=== PATIENT | female | born 1945 | race Caucasian/White ===

== ENCOUNTER 2017-06-10 14:06 | Observation (INO) ==
[2017-06-10 14:37] LABS: Basophils # 0.1 K/mm3 (0-0.2); Basophils % 0.7 % (0.1-2.0); Eosinophils # 0.2 K/mm3 (0.0-0.4); Eosinophils % 2.6 % (0.1-12.0); Hematocrit 49.1 % (37.0-47.0); Hemoglobin 15.7 g/dL (12.2-16.2); Lymphocytes # 3.3 K/mm3 (0.7-4.5); Lymphocytes % 35.5 K/mm3 (10-50); Mean Corpuscular Hemoglobin 30.1 pg (27.0-31.2); Mean Platelet Volume 9.2 fl (7.4-10.4); Monocytes # 0.5 K/mm3 (0.1-1.0); Monocytes % 5.7 % (1.7-9.3); Neutrophils # 5.2 K/mm3 (1.8-7.8); Neutrophils % 55.5 % (37.0-80.0); Platelet Count 246 K/mm3 (142-424); Red Blood Count 5.22 M/mm3 (4.20-5.40); Red Cell Distribution Width 14.3 % (11.5-17.5); White Blood Count 9.3 K/mm3 (4.8-10.8)
[2017-06-10 14:46] LABS: Chloride 103 mmol/L (98-107); Creatine Kinase 150 U/L (26-192); Potassium 3.8 mmoL/L (3.5-5.1); Sodium 141 mmol/L (136-145)
[2017-06-10 14:47] LABS: Aspartate Amino Transferase 24 U/L (15-37); Bilirubin,Total 0.3 mg/dL (0.2-1.0); Blood Urea Nitrogen 7 mg/dL (7-18); Calcium 9.1 mg/dL (8.5-10.1); Carbon Dioxide 29 mmol/L (21.0-32.0); Glucose 122 mg/dL (74-106)
[2017-06-10 14:48] LABS: Alanine Aminotransferase 23 U/L (12-78); Albumin Level 3.8 gm/dL (3.4-5.0); Alkaline Phosphatase 92 U/L (46-116); Total Protein,Serum 7.8 gm/dL (6.4-8.2)
--- NOTE | 2017-06-10 14:50 | Emergency Department Note ---
ED Disposition Clinical Impression: Tobacco use, COPD (chronic obstructive pulmonary disease), Chest pain, Hypertension Disposition: Still a Patient Condition on Discharge: Fair Referrals: Lewis Sloan MD [Primary Care Provider] - - Critical Care Critical Care Time: No Attestation: On , the high probability of a clinically significant, sudden or life threatening deterioration of the following system(s) required my full and direct attention, intervention and personal management. The time I documented below is in addition to time spent performing reported procedures but includes the following listed in this critical care notation. Medical Decision Making - Jacques Inquiry Pt receiving controlled substance: No Jacques was queried for this patient: No Vital Signs: 06/10/17 14:08 06/10/17 14:22 06/10/17 15:01 Temperature 98.1 F Temperature Source Oral Pulse Rate 85 Pulse Rate [Right Brachial] 87 88 Respiratory Rate 18 18 Blood Pressure [Right Arm] 185/108 157/98 Blood Pressure Mean [Right Arm] 133 117 Blood Pressure Source [Right Arm] Automatic Cuff Automatic Cuff Blood Pressure Position [Right Arm] Sitting Sitting 02 Sat by Pulse Oximetry 95 94 L Oxygen Delivery Method Room Air Room Air 06/10/17 16:37 Temperature 97.8 F Temperature Source Oral Pulse Rate Pulse Rate [Right Brachial] 85 Respiratory Rate 18 Blood Pressure [Right Arm] 152/88 Blood Pressure Mean [Right Arm] 109 Blood Pressure Source [Right Arm] Automatic Cuff Blood Pressure Position [Right Arm] Supine 02 Sat by Pulse Oximetry 91 L Oxygen Delivery Method Room Air - Lab Data Lab Results 06/10/17 14:25: WBC 9.3, RBC 5.22, Hgb 15.7, Hct 49.1 H, MCV 94.0, MCH 30.1, MCHC 32.0, RDW 14.3, Plt Count 246, MPV 9.2, Neut % (Auto) 55.5, Lymph % (Auto) 35.5, [place] % (Auto) 5.7, Eos % (Auto) 2.6, Baso % (Auto) 0.7, Neut # (Auto) 5.2 , Lymph # (Auto) 3.3, [place] # (Auto) 0.5, Eos # (Auto) 0.2, Baso # (Auto) 0.1 06/10/17 14:25: Sodium 141, Potassium 3.8, Chloride 103, Carbon Dioxide 29, Anion Gap 12.8, BUN 7, Creatinine 0.65, Estimated Creat Clear 52, Estimated GFR 90, Est GFR ( Amer) 109, Glucose 122 H, Calcium 9.1, Total Bilirubin 0.3 , AST 24, ALT 23, Alkaline Phosphatase 92, Total Creatine Kinase 150, CK-MB (CK- 2) 1.9, CK-MB (CK-2) Rel Index 1.3, Troponin I < 0.02, Total Protein 7.8, Albumin 3.8, Globulin 4.0 H, Albumin/Globulin Ratio 1.0 L 06/10/17 14:25: D-Dimer 980 H* 06/10/17 14:25: B-Natriuretic Peptide 6 06/10/17 15:01: Specimen Source L. radial, O2 % Room air, ABG pH 7.43, ABG pCO2 40.9, ABG pO2 64.1 L, ABG HCO3 26.3 H, ABG Total CO2 27.5 H, ABG O2 Saturation 94, ABG Base Excess 1.9, Kimo Test Acceptable 06/10/17 15:50: Lactic Acid 0.9 Result diagrams: 06/10/17 14:25 06/10/17 14:25 Orders (Tests/Meds): ED MEDICATIONS Generic Name Dose Route Start Last Admin Trade Name Freq PRN Reason Stop Dose Admin Ceftriaxone Sodium 1 gm/ 50 mls @ 100 mls/hr 06/10/17 15:30 06/10/17 15:47 Sodium Chloride IV 06/24/17 15:29 100 mls/hr Q24H ROSHAN Administration Protocol Nitroglycerin 0.5 gm 06/10/17 15:30 06/10/17 15:38 Nitroglycerin 1 Inch Oint Udp TD 07/10/17 15:29 0.5 gm Q8H ROSHAN Administration Discontinued Medications Generic Name Dose Route Start Last Admin Trade Name Freq PRN Reason Stop Dose Admin Albuterol/Ipratropium 3 ml 06/10/17 14:46 06/10/17 15:01 Duoneb 3ml Neb IH 06/10/17 14:47 3 ml ONCE ONE Administration Methylprednisolone Sodium Succinate 125 mg 06/10/17 15:21 06/10/17 15:38 Solu-Medrol 125mg/2ml Vial IV 06/10/17 15:22 125 mg ONCE ONE Administration ORDERS Category Date Time Status CT Chest w/PE protocol [CT angio chest] Stat Cat Scan 06/10/17 15:38 Taken Blood Culture Stat Micro 06/10/17 15:30 Received - ECG Data Tracing #1 Normal sinus rhythm 88/min left atrial enlargement nonspecific ST and T-wave changes, acute finding ECG initial impression date: 06/10/17 ECG initial impression time: 14:49 Medical Decision Narrative: The patient received Solu-Medrol and IV antibiotics with improvement of her air entry but she continued to have chest pain. She nitroglycerin paste and aspirin were given her chest pain as decreased to 4/10 and the left arm pain disappeared but she continued to have chest pressure. Due to elevated diameter the patient underwent a CT of the chest was negative for PE but positive for COPD. The patient was noted to be symptomatic and I called Dr. Sloan who agreed to admit her continue Nitropaste's Lovenox and cardiology consultation. Chest Pain HPI - General Chief Complaint: Chest Pain Stated Complaint: CHEST PAIN Time Seen by Provider: 06/10/17 14:10 Mode of Arrival: Ambulatory Limitations: No Limitations Description of Symptoms (Recalled from ER Triage Doc. by RN): REPORTS CHEST PAIN THAT STARTED DURING JUDAISM THAT WAS A SQUEEZING LIKE SENSATION, REPORTS PAIN DOWN HER LEFT ARM WITH IT AND ASSOCIATED SHORTNESS OF BREATH. PT REPORTS SHE TOOK 325MG ASPIRIN AT HOME - History of Present Illness HPI narrative: 72 years old white female with hypertension and tobacco addiction. She has been experiencing chest tightness in the past few weeks that has worsened at 9: 00 this morning before she goes to [facility]ze. Patient was brought to the ED after druze complaining of chest tightness that is 5/10 associated with occasional palpitations and shortness of breath. She denies fever or chills productive sputum. Denies nausea or vomiting. complaint: chest pain Onset (ago): hour(s) Time: 09:00 Duration: constant Activity at onset: during rest Pain location: substernal Severity: moderate Severity scale (1-10): 5 Quality: tightness Pain radiation: LUE Relieving factors: nothing Exacerbating factors: exertion Associated symptoms: dyspnea Risk Factors for CAD: Hypertension, Smoking Treatments prior to or on arrival for Cardiac Chest Pain: aspirin - Related Data On Oral Contraceptives: No Home Medications Medication Instructions Recorded Confirmed Aspirin [Aspirin 325mg Tab] 325 mg PO DAILY 06/10/17 06/10/17 Celecoxib 200 mg PO DAILY 06/10/17 06/10/17 Gabapentin [Gabapentin 300mg Cap] 300 mg PO BID 06/10/17 06/10/17 Ipratropium/Albuterol Sulfate 3 ml IH QID PRN 06/10/17 06/10/17 [Duoneb 3mL neb] Rosuvastatin Calcium 40 mg PO DAILY 06/10/17 06/10/17 Tramadol HCl/Acetaminophen 1 tab PO Q4H PRN 06/10/17 06/10/17 [Ultracet 37.5/325mg tablet] Allergies Allergy/AdvReac Type Severity Reaction Status Date / Time No Known Allergies Allergy Verified 06/10/17 14:15 [facility] History I have reviewed the patient's past medical history: Yes Medical History: Denies:: Cancer, Diabetes Mellitus Type 1, Diabetes Mellitus Type 2, MRSA Amputation: No Fractures: No - Social History Smoking Status: Current every day smoker Tobacco Type: cigarettes Alcohol Intake: never - Psychiatric History Expresses thoughts of harming self/others: None Suicide Plan Description: No Plan ROS Obtained: Yes All systems reviewed & no additional complaints Physical Exam - General General appearance: alert, in no apparent distress - Head Head exam: atraumatic, normocephalic, normal inspection - Eye Eye exam: Present: normal appearance, PERRL, EOMI - ENT ENT exam: Present: normal exam, normal oropharynx, mucous membranes moist, TM's normal bilaterally, normal external ear exam - Neck Neck exam: Present: normal inspection, full ROM, trachea midline. Absent: meningismus, lymphadenopathy - Chest Chest inspection: Present: normal inspection, symmetric chest wall rise. Absent : tenderness - Respiratory Respiratory exam: Present: normal lung sounds bilaterally. Absent: respiratory distress - Cardiovascular Cardiovascular exam: Present: regular rate, normal rhythm. Absent: JVD - Abdominal Exam Abdominal exam: Present: soft, normal bowel sounds. Absent: distention, tenderness, guarding - Extremities Exam Extremities exam: Present: normal inspection, full ROM, normal capillary refill. Absent: calf tenderness - Back Exam Back exam: Present: normal inspection. Absent: tenderness - Neurological Exam Neurological exam: Present: alert, oriented X3, CN II-XII intact, normal gait, motor sensory deficit - Psychiatric Psychiatric exam: Present: normal affect, normal mood - Skin Skin exam: Present: warm, dry, intact, normal color - Lymphatic Lymphatic Findings: no adenopathy
[2017-06-10 15:06] LABS: Anion Gap 12.8 mEq/L (5-15)
[2017-06-10 15:17] LABS: ABG Base Excess 1.9 mmol/L (-2.4-2.3); ABG HCO3 26.3 mmhg (22.0-26.0); ABG Oxygen Saturation 94 % (90-100); ABG PCO2 40.9 mmhg (35.0-45.0); ABG PH 7.43 mmol/L (7.35-7.45); ABG PO2 64.1 mmhg (80-100); ABG TCO2 27.5 mmhg (23-27)
[2017-06-10 15:18] LABS: Allen's Test Acceptable; Oxygen ROOM AIR %
[2017-06-11 07:08] LABS: Basophils % 0.2 % (0.1-2.0); Eosinophils % 0.1 % (0.1-12.0); Hematocrit 43.5 % (37.0-47.0); Lymphocytes # 1.9 K/mm3 (0.7-4.5); Mean Corpuscular Hemoglobin 29.7 pg (27.0-31.2); Mean Corpuscular Volume 92.9 fl (81-99); Mean Platelet Volume 9.4 fl (7.4-10.4); Monocytes # 0.6 K/mm3 (0.1-1.0); Monocytes % 6.2 % (1.7-9.3); Neutrophils # 7.1 K/mm3 (1.8-7.8); Neutrophils % 73.5 % (37.0-80.0); Platelet Count 250 K/mm3 (142-424); Red Blood Count 4.68 M/mm3 (4.20-5.40); Red Cell Distribution Width 14.3 % (11.5-17.5); White Blood Count 9.7 K/mm3 (4.8-10.8)
--- NOTE | 2017-06-11 07:24 | History & Physical Report ---
*Admission Date: 06/10/17 *Chief complaint: Chest pain *History of present illness: 72-year-old female with known hyperlipidemia and a cigarette smoker presented to the emergency department with centralized chest tightness radiating into the left arm. Patient describes a pressure and aching sensation within the chest and arm that began around 9 AM yesterday and and recurred throughout the day. Episodes of status would last for hours. There were no aggravating or alleviating factors. Patient tells me she has had chest pain only in the past and arm pain only in the past but she has never had the 2 together and that is when she became concerned. She is undergone cardiac evaluation in the remote past through stress testing. She continues to smoke 2-4 cigarettes per day but at her heaviest use was smoking pack of cigarettes a day and began smoking at the age of 21. She does not have any history of hypertension nor diabetes. In the emergency department she was given nitroglycerin which temporarily relieved her chest pain but then it recurred. Patient was admitted for rule out of [place] with serial enzymes and nitroglycerin paste was applied. This morning the patient is denying any chest pain. During her episodes of chest tightness she had associated shortness of breath, mild diaphoresis, no nausea [facility] History Medical History: Reports:: Cancer, Hyperlipidemia Denies:: Diabetes Mellitus Type 1, Diabetes Mellitus Type 2, MRSA Other Medical History: Reports: Arthritis, Sinus Problems Other Surgeries: Yes: Cholecystectomy, Tubal Ligation Amputation: No Fractures: No - *Social History Educational Level: Completed GED/General Educational Development Smoking Status: Current every day smoker Tobacco Type: cigarettes # Packs/Day (cigarettes): 1 #Yrs smoked (if former smoker): 50 Alcohol Intake: never Occupational Status: retired Housing: house - Psychiatric History Expresses thoughts of harming self/others: None Suicide Plan Description: No Plan *Family Hx:: Bleeding Disorder, Heart Attack, Stroke Review of Systems - Review of Systems Review of systems:: pertinent systems reviewed and negative unless documented below Meds Home Medications Medication Instructions Recorded Confirmed Type Aspirin [Aspirin 325mg Tab] 325 mg PO DAILY 06/10/17 06/10/17 History Celecoxib 200 mg PO DAILY 06/10/17 06/10/17 History Gabapentin [Gabapentin 300mg Cap] 300 mg PO BID 06/10/17 06/10/17 History Ipratropium/Albuterol Sulfate 3 ml IH QID PRN 06/10/17 06/10/17 History [Duoneb 3mL neb] Rosuvastatin Calcium 40 mg PO DAILY 06/10/17 06/10/17 History Tramadol HCl/Acetaminophen 1 tab PO Q4H PRN 06/10/17 06/10/17 History [Ultracet 37.5/325mg tablet] Allergies Allergy/AdvReac Type Severity Reaction Status Date / Time Sulfa (Sulfonamide Allergy Unknown Verified 06/10/17 19:32 Antibiotics) [facility] Allergy Verified 06/10/17 23:27 Exam Vital signs and Labs for Last 24 Hours: Temp Pulse Resp BP Pulse Ox 98.4 F 82 20 113/62 96 06/11/17 07:11 06/11/17 07:11 06/11/17 07:11 06/11/17 07:11 06/11/17 07:11 Laboratory Results - last 24 hr 06/11/17 00:20: Troponin I < 0.02 06/11/17 06:10: WBC 9.7, RBC 4.68, Hct 43.5, MCV 92.9, MCH 29.7, MCHC 32.0, RDW 14.3, Plt Count 250, MPV 9.4, Neut % (Auto) 73.5, Lymph % (Auto) 20.0, [place] % ( Auto) 6.2, Eos % (Auto) 0.1, Baso % (Auto) 0.2, Neut # (Auto) 7.1, Lymph # (Auto ) 1.9, [place] # (Auto) 0.6, Eos # (Auto) 0.0, Baso # (Auto) 0.0 I & O for Last 24 hours: Intake & Output 06/08/17 06/09/17 06/10/17 06/11/17 11:59 11:59 11:59 11:59 Intake Total 720 / 720 Output Total 850 / 850 Balance -130 / -130 Weight 142 lb 7 oz Narrative: She is awake and alert this morning. HEENT exam is grossly normal. Neck is without lymphadenopathy. Lungs are clear to auscultation bilaterally. Heart has a regular rate and rhythm. Abdomen is soft and nontender. Extremities are without edema. H&P: Result - Labs Labs: Short CBC 06/11/17 Range/Units 06:10 WBC 9.7 (4.8-10.8) K/mm3 Hct 43.5 (37.0-47.0) % Plt Count 250 (142-424) K/mm3 Cardiac Enzymes 06/11/17 Range/Units 00:20 Troponin I < 0.02 (0.00-0.06) ng/ml Assessment and Plan (1) Unstable angina Current visit: Yes Status: Acute Category: Medical Code(s): I20.0 - Unstable angina (2) Chest pain Current visit: Yes Status: Acute Category: Medical Code(s): R07.9 - Chest pain, unspecified (3) Hyperlipidemia Current visit: Yes Status: Acute Category: Medical Code(s): E78.5 - Hyperlipidemia, unspecified (4) COPD (chronic obstructive pulmonary disease) Current visit: Yes Status: Acute Category: Medical Code(s): J44.9 - Chronic obstructive pulmonary disease, unspecified (5) Tobacco use Current visit: Yes Status: Acute Category: Social Hx Code(s): Z72.0 - Tobacco use - Assessment and plan all Dx Assessment and Plan for all problems:: . Patient is ruled out for [place] 2. Echocardiogram ordered this morning 3. Cardiology consultation this morning.
--- NOTE | 2017-06-11 07:25 | Pharmacy Consult Notes ---
[facility] Pharmacy VTE Monitoring - Patient Demographics Admission date: 06/10/17 Report Date: 06/11/17 Time: 07:25 Allergies/Adverse Reactions: Patient Allergies Sulfa (Sulfonamide Antibiotics) Allergy (Unknown, Verified 06/10/17 19:32) cetirizine [From Zyrtec] Allergy (Verified 06/10/17 23:27) Height: 1.57 m Weight: 64.609 kg Patient Problems: Current Active Problems Tobacco use (Acute) COPD (chronic obstructive pulmonary disease) (Acute) Chest pain (Acute) Hypertension (Acute) - VTE Risk Labs: VTE Related Lab Results Hgb 15.7 g/dL (12.2-16.2) 06/10/17 14:25 Hct 43.5 % (37.0-47.0) 06/11/17 06:10 Plt Count 250 K/mm3 (142-424) 06/11/17 06:10 BUN 7 mg/dL (7-18) 06/10/17 14:25 Creatinine 0.65 mg/dL (0.55-1.02) 06/10/17 14:25 Estimated Creat Clear 52 mL/min (0-300) 06/10/17 14:25 Was VTE Risk Assessment Performed: Yes VTE Score: 5 VTE Risk Level: Low Risk - Prophylaxis VTE Prophylaxis Ordered?: Yes Types of VTE Prophylaxis: TEDS Knee High Location of Applied Device: Bilateral Lower Extremeties - VTE Diagnosis Confirmed Treatment or plan recommended: Continue Current Treatment
[2017-06-11 07:34] LABS: Hemoglobin 13.9 g/dL (12.2-16.2)
[2017-06-11 08:13] LABS: Blood Urea Nitrogen 10 mg/dL (7-18); Carbon Dioxide 28 mmol/L (21.0-32.0); Glucose 136 mg/dL (74-106)
[2017-06-11 08:54] LABS: Anion Gap 11.1 mEq/L (5-15); Chloride 105 mmol/L (98-107); Potassium 4.1 mmoL/L (3.5-5.1); Sodium 140 mmol/L (136-145)
--- NOTE | 2017-06-11 11:48 | Discharge Summary ---
General - General Admission date: 06/10/17 Discharge date: 06/11/17 HPI HPI: 72-year-old female with known hyperlipidemia and a cigarette smoker presented to the emergency department with centralized chest tightness radiating into the left arm. Patient describes a pressure and aching sensation within the chest and arm that began around 9 AM yesterday and and recurred throughout the day. Episodes of status would last for hours. There were no aggravating or alleviating factors. Patient tells me she has had chest pain only in the past and arm pain only in the past but she has never had the 2 together and that is when she became concerned. She is undergone cardiac evaluation in the remote past through stress testing. She continues to smoke 2-4 cigarettes per day but at her heaviest use was smoking pack of cigarettes a day and began smoking at the age of 21. She does not have any history of hypertension nor diabetes. In the emergency department she was given nitroglycerin which temporarily relieved her chest pain but then it recurred. Patient was admitted for rule out of [place] with serial enzymes and nitroglycerin paste was applied. This morning the patient is denying any chest pain. During her episodes of chest tightness she had associated shortness of breath, mild diaphoresis, no nausea Hospital Course Hospital Course: Patient ruled out for [place]. Decision was made to complete work up as outpatient by Cardiology service Objective Vital signs: Temp Pulse Resp BP Pulse Ox 98.4 F 82 20 113/62 96 06/11/17 07:11 06/11/17 07:11 06/11/17 07:11 06/11/17 07:11 06/11/17 07:11 Results Labs on day of discharge: Labs from last 24 hours 06/11/17 06/11/17 06/11/17 06:10 06:10 00:20 WBC 9.7 RBC 4.68 Hgb 13.9 D Hct 43.5 MCV 92.9 MCH 29.7 MCHC 32.0 RDW 14.3 Plt Count 250 MPV 9.4 Neut % (Auto) 73.5 Lymph % (Auto) 20.0 [place] % (Auto) 6.2 Eos % (Auto) 0.1 Baso % (Auto) 0.2 Neut # (Auto) 7.1 Lymph # (Auto) 1.9 [place] # (Auto) 0.6 Eos # (Auto) 0.0 Baso # (Auto) 0.0 Sodium 140 Potassium 4.1 Chloride 105 Carbon Dioxide 28 Anion Gap 11.1 BUN 10 D Creatinine 0.54 L Estimated Creat Clear 53 Estimated GFR 111 Est GFR ( Amer) 135 D Glucose 136 H Troponin I < 0.02 < 0.02 DS: Diagnosis - Discharge Diagnosis (1) Unstable angina Status: Acute (2) Chest pain Status: Acute (3) Hyperlipidemia Status: Acute (4) COPD (chronic obstructive pulmonary disease) Status: Acute (5) Tobacco use Status: Acute Discharge Plan - Patient Discharge Instructions ACTIVITY: Continue current activity DIET: continue same diet - Follow up Plan Follow up with: Lewis Sloan MD [Primary Care Provider] - Disposition: Home, Self-Nursing Home Medications: Home Medications Medication Instructions Recorded Confirmed Type Aspirin [Aspirin 325mg Tab] 325 mg PO DAILY 06/10/17 06/10/17 History Gabapentin [Gabapentin 300mg Cap] 300 mg PO BID 06/10/17 06/10/17 History Ipratropium/Albuterol Sulfate 3 ml IH QID PRN 06/10/17 06/10/17 History [Duoneb 3mL neb] Rosuvastatin Calcium 40 mg PO DAILY 06/10/17 06/10/17 History Tramadol HCl/Acetaminophen 1 tab PO TIDP PRN 06/10/17 06/11/17 History [Ultracet 37.5/325mg tablet] Celecoxib [Celebrex] 200 mg PO DAILY 06/11/17 06/11/17 History Prescriptions/Medication Reconciliation: New Nitroglycerin [Nitrostat 0.4mg SL Tablet] 0.4 mg SL Q5MINP PRN #30 tab.subl PRN Reason: Chest Pain Continue Gabapentin [Gabapentin 300mg Cap] 300 mg PO BID Tramadol HCl/Acetaminophen [Ultracet 37.5/325mg tablet] 1 tab PO TIDP PRN PRN Reason: PAIN Rosuvastatin Calcium 40 mg PO DAILY Ipratropium/Albuterol Sulfate [Duoneb 3mL neb] 3 ml IH QID PRN PRN Reason: COPD Aspirin [Aspirin 325mg Tab] 325 mg PO DAILY Celecoxib [Celebrex] 200 mg PO DAILY
--- NOTE | 2017-06-11 16:06 | Consult Report ---
History of Present Illness Consult date: 06/11/17 Requesting physician: Lewis Sloan Consult reason: chest pain, shortness of breath Chief complaint: Chest pain Additional Medical History:: 1. Chronic Obstructive Pulmonary Disease. 2. Atypical chest pain. 3. Essential Hypertension. 4. Tobacco abuse. History of present illness: 72-year-old white female admitted to facility for chest pain. Patient stated while at [facility] she began having some chest pressure it was more like a squeezing feeling in her chest with radiation to the left arm. Patient stated she then became very short of breath. Patient is a poor historian. Patient is unsure if she has any cardiac issues patient does have history of hypertension and COPD. Patient smokes 1 pack per day of cigarettes and has for over 50 years. Patient stated that the chest pain comes and goes. During this examination patient denied chest pain or shortness of breath. EKG upon admission revealed normal sinus rhythm non-ST and T-wave abnormality with a heart rate of 86 bpm. Echocardiogram was performed and revealed EF of 55 %. Cardiac workup was performed in the ER which is unremarkable, exception of D -dimer at 980. CTA of the chest was performed at that time no PE was noted. Troponins remain negative x3. Chest x-ray revealed pulmonary fibrosis with questionable nodules. [facility] History Medical History: Reports:: Cancer, Hyperlipidemia Denies:: Diabetes Mellitus Type 1, Diabetes Mellitus Type 2, MRSA Other Medical History: Reports: Arthritis, Sinus Problems Other Surgeries: Yes: Cholecystectomy, Tubal Ligation Amputation: No Fractures: No - *Social History Educational Level: Completed GED/General Educational Development Smoking Status: Current every day smoker Tobacco Type: cigarettes # Packs/Day (cigarettes): 1 #Yrs smoked (if former smoker): 50 Alcohol Intake: never Occupational Status: retired Housing: house - Psychiatric History Expresses thoughts of harming self/others: None Suicide Plan Description: No Plan *Family Hx:: Bleeding Disorder, Heart Attack, Stroke Meds Home Medications Medication Instructions Recorded Confirmed Type Aspirin [Aspirin 325mg Tab] 325 mg PO DAILY 06/10/17 06/10/17 History Gabapentin [Gabapentin 300mg Cap] 300 mg PO BID 06/10/17 06/10/17 History Ipratropium/Albuterol Sulfate 3 ml IH QID PRN 06/10/17 06/10/17 History [Duoneb 3mL neb] Rosuvastatin Calcium 40 mg PO DAILY 06/10/17 06/10/17 History Tramadol HCl/Acetaminophen 1 tab PO TIDP PRN 06/10/17 06/11/17 History [Ultracet 37.5/325mg tablet] Celecoxib [Celebrex] 200 mg PO DAILY 06/11/17 06/11/17 History Allergies Allergy/AdvReac Type Severity Reaction Status Date / Time Sulfa (Sulfonamide Allergy Unknown Verified 06/10/17 19:32 Antibiotics) cetirizine [From [facility]] Allergy Verified 06/10/17 23:27 Review of Systems - Constitutional Reports fatigue, Reports lack of energy - *Cardiovascular Reports chest pain, Reports chest pain at rest, Reports chest pain with activity , Reports shortness of breath, Reports shortness of breath with activity - *Respiratory Reports shortness of breath, Denies chest congestion, Denies cough, Denies pain with cough, Denies stridor, Denies wheezing - *Gastrointestinal Denies abdominal pain, Denies constipation, Denies loose stools, Denies heartburn - *Neurologic Reports weakness, Denies confusion, Denies dizziness, Denies headache(s), Denies fainting, Denies dizziness Exam Vital signs and Labs for Last 24 Hours: Temp Pulse Resp BP Pulse Ox 98.4 F 82 20 113/62 96 06/11/17 07:11 06/11/17 07:11 06/11/17 07:11 06/11/17 07:11 06/11/17 07:11 Laboratory Results - last 24 hr 06/11/17 00:20: Troponin I < 0.02 06/11/17 06:10: WBC 9.7, RBC 4.68, Hgb 13.9 D, Hct 43.5, MCV 92.9, MCH 29.7, MCHC 32.0, RDW 14.3, Plt Count 250, MPV 9.4, Neut % (Auto) 73.5, Lymph % (Auto) 20.0, Terry % (Auto) 6.2, Eos % (Auto) 0.1, Baso % (Auto) 0.2, Neut # (Auto) 7.1 , Lymph # (Auto) 1.9, Terry # (Auto) 0.6, Eos # (Auto) 0.0, Baso # (Auto) 0.0 06/11/17 06:10: Sodium 140, Potassium 4.1, Chloride 105, Carbon Dioxide 28, Anion Gap 11.1, BUN 10 D, Creatinine 0.54 L, Estimated Creat Clear 53, Estimated GFR 111, Est GFR ( Amer) 135 D, Glucose 136 H, Troponin I < 0.02 I & O for Last 24 hours: Intake & Output 06/08/17 06/09/17 06/10/17 06/11/17 23:59 23:59 23:59 23:59 Intake Total 240 / 240 480 / 480 Output Total 450 / 450 400 / 400 Balance -210 / -210 80 / 80 Weight 142 lb 7 oz 142 lb 7 oz - Constitutional no acute distress, thin, cooperative - *Routine Neck Exam Present: supple, full ROM, normal carotid upstroke, trachea midline. Absent: JVD, carotid bruit - *Routine Respiratory Exam Present: CTA bilaterally. Absent: respiratory distress - *Routine Cardiovascular Exam Present: RRR, Normal S1, Normal S2. Absent: murmur, JVD - *Routine Abdominal Exam Absent: distended, guarding, mass - *Routine Extremities Exam Present: full ROM, pulses intact, normal capillary refill. Absent: clubbing, edema, calf tenderness - *Routine Neurological Exam Present: alert, oriented X3, CN II-XII intact, moving all extremities, normal speech Assessment and Plan (1) Unstable angina Status: Acute Category: Medical Code(s): I20.0 - Unstable angina (2) Chest pain Status: Acute Category: Medical Code(s): R07.9 - Chest pain, unspecified (3) Hyperlipidemia Status: Acute Category: Medical Code(s): E78.5 - Hyperlipidemia, unspecified (4) COPD (chronic obstructive pulmonary disease) Status: Acute Category: Medical Code(s): J44.9 - Chronic obstructive pulmonary disease, unspecified (5) Tobacco use Status: Acute Category: Social Hx Code(s): Z72.0 - Tobacco use (6) Hypertension Status: Acute Category: Medical Code(s): I10 - Essential (primary) hypertension - Assessment and plan all Dx Assessment and Plan for all problems:: Plan: 1. Continue current medication regimen. 2. Obtain Lexiscan Myoview on outpatient bases. 3. Cardiology follow-up in 1 week. 4. Tobacco sensation. Advise and recommend to stop smoking.
--- NOTE | 2017-06-11 23:37 | Cardiology Report ---
PROCEDURE: 2-D M-mode and color Doppler study INDICATIONS FOR THE TEST: Chest pain X COPDX Heart Murmur Tobacco SmokingX Palpitations Fatigue Syncope Edema HypertensionXDiabetes Mellitus Rheumatic Fever SOBXDOE Obesity Hyperlipidemia Family History HD Additional History PATIENT INFORMATION HEIGHT: 62 WEIGHT:142 GENDER: Female B/P:157/98 2-D/M-MODE INTERPRETATION: 2-D MEASUREMENTS OBSERVED VALUES IN CMS Right Ventricular Dimension (RVDd) 2.0 Interventricular Septum (Thickness)(IVsd) 1.0 Left Ventricular Internal Dimensions(LVIDd) 5.1 Left Ventricular Posterior Wall (Thickness)(LVPWd) 1.2 Aortic Root 3.2 Aortic Cusp Separation 1.7 Left Atrial Dimensions (LAD) 2.2 2D 1. Left atrium is qualitatively mildly enlarged, left ventricle is normal size, there is mild qualitative concentric left ventricular hypertrophy, visually estimated ejection fraction 55% with no obvious regional wall motion abnormality. 2. The right atrium and right ventricle are normal size and contractility. 3. The aortic valve is minimally thickened and fibrosed. 4. The mitral and tricuspid valve leaflets are minimally thickened. 5. The pulmonic valve is poorly visualized. 6. No significant pericardial effusion noted. DOPPLER INTERROGATION: Doppler interrogation of the aortic, mitral and tricuspid valvular presence of mild mitral and tricuspid regurgitation, calculated right ventricular systolic pressure is approximately 36 mmHg, grade 1 diastolic dysfunction seen without tissue Doppler evidence of raised left atrial pressure. CONCLUSION: 1. Mildly enlarged left atrium, normal left ventricular size, mild concentric left ventricular hypertrophy, visually estimated ejection fraction 55% with no obvious regional wall motion abnormality, grade 1 diastolic dysfunction seen without tissue Doppler evidence of raised left atrial pressure. 2. Mild mitral and tricuspid regurgitation, calculated ventricular systolic pressure is 36 mmHg. 3. No significant pericardial effusion noted.
== END 2017-06-11 13:52 | disposition home or self-care (01) ==
LOC: 2ND 14:06 → ER 14:06 → 2ND 18:39
PROVIDERS: ADMIT Family Medicine; ATTEND Family Medicine

== ENCOUNTER → 2017-06-13 06:13 | Outpatient (CLI) | payer MEDICARE, SELFPAY ==
--- NOTE | 2017-06-13 07:56 | NM_ITS ---
History and Indications: Tobacco use, family history, chest pain and shortness of breath. Procedure: Patient exercised on Sam protocol 6 minutes and 15 seconds, resting heart rate was 78 bpm resting blood pressure 166/94, with exercise maximum heart rate achieved was 1 26 bpm which is equal to 85% of the maximum predicted heart rate and a blood pressure was 180/85. Test was started due to shortness of breath patient denied any complained of chest pain. Patient has adequate exercise capacity achieved 7mets of workload on treadmill, the blood pressure response to exercise was adequate. Electrocardiogram: Resting electrocardiogram showed sinus rhythm, with exercise there is less than 1.[address] segment depression noted from the baseline EKG. The EKG portion of the exercise Myoview is negative for ischemia. Cardiac stress and resting SPECT images: Cardiac stress and resting SPECT images were obtained using technetium 99 Myoview 10.4 mCi at rest and 31.4 mCi at stress, gated SPECT further analysis of segmental wall motion and calculation of the ejection fraction also done. Cardiac stress and resting SPECT images show a fall myocardial activity without any segmental perfusion abnormality, computer derived ejection fraction of 55% with no obvious regional wall motion abnormality, right ventricle is normal size and contractility. Conclusion: 1. The EKG portion of the exercise Myoview is negative for ischemia patient has adequate exercise capacity achieved7 mets of workload on treadmill, the blood pressure response to exercise was adequate, there was no exercise-induced chest discomfort. 2. No obvious scintigraphic evidence of reversible ischemia seen, computer derived ejection fraction is 55% with no obvious regional wall motion abnormality, right ventricle is normal size and contractility. 3. Normal exercise Myoview study.
--- NOTE | 2017-06-13 08:24 | HMH.ITSHM ---
CELEBREX GABAPENTIN TRAMADOL ASA VITAMINS ROSUVASTATIN
== END ==
PROVIDERS: PCP Family Medicine; Visit Provider Internal Medicine
DX: R07.9 Chest pain, unspecified (principal)
CPT/HCPCS: 78452; 93017; A9502

== ENCOUNTER → 2017-06-19 09:59 | Outpatient (CLI) | payer MEDICARE, SELFPAY ==
--- NOTE | 2017-06-19 10:01 | CI_ITS ---
Cerebrovascular Exam Indications: 780.4 Dizziness and giddiness. 785.9 Bruit. IMPRESSIONS 1. The bilateral vertebral arteries are patent with normal antegrade flow. 2. Study suggests less than 20% stenosis involving the right internal carotid artery and the left internal carotid artery. History: Risk factors: Current tobacco use. Hypertension. Hyperlipidemia. Carotid duplex study. Complete study and Doppler flow study including spectral analysis, color and mckinley scale imaging. Height: Height: 157.5cm. Height: 62in. Weight: Weight: 63.5kg. Weight: 139.7lb. Body mass index: BMI: 25.6kg/m^2. Body surface area: BSA: 1.68m^2. Location: Vascular laboratory. Patient status: Outpatient. Tables: Arterial flow: + +--------+--------+ Location V sys V ed + +--------+--------+ Right CCA - proximal 49.5cm/s 15.7cm/s + +--------+--------+ Right CCA - distal 46.4cm/s 18.1cm/s + +--------+--------+ Right ECA 97.6cm/s -------- + +--------+--------+ Right ICA - proximal 31.4cm/s 12.6cm/s + +--------+--------+ Right ICA - mid 62.1cm/s 22cm/s + +--------+--------+ Right ICA - distal 95.3cm/s 36.8cm/s + +--------+--------+ Right vertebral 34.2cm/s -------- + +--------+--------+ Left CCA - proximal 54.6cm/s 16.5cm/s + +--------+--------+ Left CCA - distal 48cm/s 16.5cm/s + +--------+--------+ Left ECA 59cm/s -------- + +--------+--------+ Left ICA - proximal 47.4cm/s 17.1cm/s + +--------+--------+ Left ICA - mid 104cm/s 31.4cm/s + +--------+--------+ Left ICA - distal 83.8cm/s 26.5cm/s + +--------+--------+ Left vertebral 33.1cm/s -------- + +--------+--------+ Velocity ratios: + + + + + + Right, V sys Right, V ed Left, V sys Left, V ed + + + + + + Max ICA/dist CCA 2.05 2.03 2.17 1.9 + + + + + + (Report amended ) Electronically signed by: Kimo Butler [id number]
== END ==
PROVIDERS: PCP Family Medicine; Visit Provider Internal Medicine
DX: R42 Dizziness and giddiness (principal); I10 Essential (primary) hypertension
CPT/HCPCS: 36415; 80048; 93880

== ENCOUNTER → 2017-06-19 10:49 | Outpatient (CLI) | payer MEDICARE, SELFPAY ==
[2017-06-19 12:23] LABS: Anion Gap 13.5 mEq/L (5-15); Blood Urea Nitrogen 11 mg/dL (7-18); Carbon Dioxide 29 mmol/L (21.0-32.0); Chloride 105 mmol/L (98-107); Creatinine,Serum 0.53 mg/dL (0.55-1.02); Estimated Glomerular Filt Rate 114 ml/min (>60); GFR (African American) 138 ML/MIN (>60); Glucose 98 mg/dL (74-106); Potassium 4.5 mmoL/L (3.5-5.1); Sodium 143 mmol/L (136-145)
== END ==
PROVIDERS: PCP Family Medicine; Visit Provider Internal Medicine Cardiovascular Disease
DX: I10 Essential (primary) hypertension (principal)
CPT/HCPCS: 36415; 80048

== ENCOUNTER → 2018-03-25 13:35 | Outpatient (CLI) | payer MEDICARE, SELFPAY ==
--- NOTE | 2018-03-25 13:49 | CT_ITS ---
CT lung screening EXAM: CT LUNG LOW DOSE WO CONTRAST HISTORY: 150 pack-year smoking history, asymptomatic for lung cancer ITS.REASON: CURRENT TOBACCO USE ORDERING PHYSICIAN: Lewis Sloan MD PATIENT AGE: 73 years COMPARISON: 06/10/2017 TECHNIQUE: The exam was performed on a GE Light Speed [address] scanner using 2.90 mGy CTDI. A low dose helical CT CHEST was performed on a multi-detector scanner. All CT scans at the facility use one or more dose reduction, viz: automated exposure control, ma/kV adjustment per patient size (including targeted exams where dose is matched to indication, i.e. head), or iterative reconstruction technique. The LDCT was performed in a facility that meets the criteria for the screening program. Data regarding this exam was submitted to ACR which is an approved registry. The order for this exam indicates that it came as a result of a lung cancer screening counseling shard decision-making visit that included all the elements required of such a visit including smoking cessation. The radiologist interpreting this exam meets the CMS criteria for the LDCT lung cancer screening program. The exam is reported using the Lung-RADS classification scale and reported to the ACR registry. NOTE: This study was performed for the specific purposes of lung cancer screening and is not an alternative to diagnostic chest CT. RADIATION DOSE: CTDI vol(CT dose Index-volume) = 2.90mG DLP (Dose Length Product) = 96.27 mGcm FINDINGS: Calcified nodules are present in the right apex. There is diffuse centrilobular emphysema. Scattered areas of pulmonary fibrosis are noted. There is nodularity in the right major fissure at 6 mm slightly more prominent from the previous exam and may be related to a lymph node. Calcified nodules present in the right middle lobe. There is nodularity in the right apex only slightly more prominent and may be related to technique. No suspicious nodules are evident. There are multiple varicosities in the subcutaneous region of the upper abdomen. Heterogeneous density once again noted in the region superior vena cava which was occluded on the previous CT scan IMPRESSION: 1. Lung RADS Category: 2, benign 2. Other findings: Centrilobular emphysema, old granulomatous disease, as obstruction of the superior vena cava RECOMMENDATIONS: 12 month LDCT follow-up
== END ==
PROVIDERS: PCP Family Medicine; Visit Provider Family Medicine
DX: Z12.2 Encounter for screening for malignant neoplasm of respiratory organs (principal); Z87.891 Personal history of nicotine dependence

== ENCOUNTER → 2019-11-10 13:39 | Outpatient (CLI) | payer MEDICARE, SELFPAY ==
[2019-11-10 15:36] LABS: Blood Urea Nitrogen 9 mg/dl (7-17); Estimated Glomerular Filt Rate 121 ml/min (>60); GFR (African American) 146 ML/MIN (>60)
== END ==
PROVIDERS: Visit Provider Family Medicine
DX: R68.81 Early satiety (principal); R63.4 Abnormal weight loss
CPT/HCPCS: 36415; 82565; 84520

== ENCOUNTER → 2019-11-12 10:51 | Outpatient (CLI) | payer MEDICARE, SELFPAY ==
--- NOTE | 2019-11-12 10:55 | CT_ITS ---
PROCEDURE: CT LUNG SCREENING CLINICAL INDICATION: HX OF TOBACCO USE current smoker 50-75pack year smoking history copd, emphysema prior 03/25/18 COMPARISON: CT AGCHEST CT angio chest from 06/10/[address] lung screening from 03/25/[address] ABDOMEN PELVIS W CON from 11/12/2019 TECHNIQUE: The exam was performed on a [employer] Speed [address] scanner using 2.90 mGy CTDI. A low dose helical CT CHEST was performed on a multi-detector scanner. All CT scans at the facility use one or more dose reduction, viz: automated exposure control, ma/kV adjustment per patient size (including targeted exams where dose is matched to indication, i.e. head), or iterative reconstruction technique. The LDCT was performed in a facility that meets the criteria for the screening program. Data regarding this exam was submitted to ACR which is an approved registry. The order for this exam indicates that it came as a result of a lung cancer screening counseling shard decision-making visit that included all the elements required of such a visit including smoking cessation. The radiologist interpreting this exam meets the CMS criteria for the LDCT lung cancer screening program. The exam is reported using the Lung-RADS classification scale and reported to the ACR registry. NOTE: This study was performed for the specific purposes of lung cancer screening and is not an alternative to diagnostic chest CT. RADIATION DOSE: CTDI vol(CT dose Index-volume) = 2.90mG DLP (Dose Length Product) = 96.38 mGcm FINDINGS: COPD with centrilobular emphysema and evidence of old granulomatous disease. There is pulmonary fibrosis in the lung bases with honeycombing posteriorly which appears slightly worse. Nodular density is present in the right major fissure and may be due to lymph node not significantly changed at 10 mm. There is a noncalcified nodule within the left upper lobe medially at 6 mm unchanged OTHER FINDINGS: Multiple calcified mediastinal and hilar lymph nodes. Scattered subcutaneous varices along the chest wall. There has been interval development of an infiltrative gastric mass with extension into the left upper quadrant with soft tissue mass in the lesser sac. Please see CT of the abdomen and pelvis report performed on the same day. IMPRESSION: Lung-RADS Category 2 Benign Appearance or Behavior Follow-up: Continue annual screening with LDCT in 12 months Please see abdomen CT abdomen pelvis report on the same day for discussion of the gastric mass and recommendations regarding that finding. Dictated by: Kimo Butler MD 11/16/2019 11:52 Kimo Butler MD in [place] 11/16/2019 11:52
--- NOTE | 2019-11-12 10:56 | CT_ITS ---
PROCEDURE: CT ABDOMEN PELVIS W CON CLINICAL INDICATION: EARLY SATIETY, WEIGHT LOSS, ABD DISTENTION bloating, unable to eat, nausea x 1-2 months COMPARISON: CT LUNGSCREEN CT lung screening from 03/25/2018 TECHNIQUE: IV Contrast: 75ML OPTIRAY 350 Oral Contrast 450ml Redicat Axial images obtained with sagittal and coronal reformats. All CT scans at the facility use one or more dose reduction, viz: automated exposure control, ma/kV adjustment per patient size (including targeted exams where dose is matched to indication, i.e. head), or iterative reconstruction technique. FINDINGS: LOWER THORAX: There are pulmonary fibrotic changes in the lung bases posteriorly. Centrilobular emphysematous changes are present in the right upper lobe and left upper lobe. ABDOMEN & PELVIS: There are collateral vessels along the superior and posterior aspect of the hemidiaphragm on the right and in the right lateral chest wall. There are collateral veins in the right renal hilar area with a prominent varix medial and posterior to the right renal hilum with varices in the right paraspinal region in the lower thoracic and upper lumbar region on the right. The inferior vena cava does appear patent. Varices are also noted within the abdominal wall. The liver, spleen, adrenal glands, and kidneys have an unremarkable appearance. There is diffuse irregular thickening of the gastric wall beginning at the GE junction and involving the fundus and upper portion of the body of the stomach. There is direct extension of soft tissue mass along the left lateral aspect of the upper body of the stomach which is nodular in configuration. This masslike extension measures 5 by 4.7 by 5.8 cm and extends to the splenic flexure region of the colon. There is NOT a preserved fat plane between this mass and the colon. Therefore, direct extension/involvement of the medial aspect of the splenic flexure of the colon is not excluded. In addition, there is an irregular soft tissue mass within the lesser sac posterior to the antrum and medial to the duodenal bulb region anterior to the pancreas. This measures 6 by 4 cm consistent with metastatic involvement in the lesser sac. There are other scattered nodular opacities in the mesenteries suspicious for metastatic involvement. No intestinal obstruction or free air. Unremarkable appendix. There is diverticulosis of the sigmoid colon but no evidence of diverticulitis. There is cystic enlargement of the right ovary measuring 3.5 cm. There is mild dilatation of the infrarenal abdominal aorta measuring up to 3 cm with mild mural thrombus. The distal abdominal aorta measures 2.4 cm. Proximal common iliacs are unremarkable. There is dextroscoliosis of the lumbar spine with multilevel degenerative disc disease and facet arthropathy. Mild degenerative changes are present in the hips. No bony destructive process is identified. IMPRESSION: 1. Infiltrative gastric mass beginning at the GE junction involving the fundus and upper body of the stomach ache with extension into the left upper quadrant extending to the splenic flexure of the colon with possible colonic involvement with an associated lesser sac mass and other areas of nodular involvement of the mesenteries. 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 Lymphoma is an additional consideration. Upper endoscopy with tissue sampling suggested for further evaluation. 2. Cystic enlargement of the right ovary. Recommend pelvic ultrasound for further evaluation. Simple ovarian cyst or metastatic disease is a consideration. 3. Colonic diverticulosis without diverticulitis. 4. Collateral vessels noted in the upper abdomen and paraspi
== END ==
PROVIDERS: PCP Family Medicine; Visit Provider Family Medicine
DX: Z87.891 Personal history of nicotine dependence (principal); Z12.2 Encounter for screening for malignant neoplasm of respiratory organs; R68.81 Early satiety; R63.4 Abnormal weight loss; R14.0 Abdominal distension (gaseous)
CPT/HCPCS: 74177; Q9967

== ENCOUNTER → 2019-11-14 15:19 | Outpatient (CLI) | payer MEDICARE, SELFPAY ==
[2019-11-14 16:46] LABS: Coronavirus 19 IgG Antibody Negative (Negative); Coronavirus 19 IgM Antibody Negative (Negative)
== END ==
PROVIDERS: Visit Provider Internal Medicine Gastroenterology
DX: Z01.818 Encounter for other preprocedural examination (principal); Z12.11 Encounter for screening for malignant neoplasm of colon
CPT/HCPCS: 36415; 86328

== ENCOUNTER 2019-11-17 09:19 | Day surgery (SDC) | payer MEDICARE, SELFPAY ==
[2019-11-17] VITALS (7 sets, daily range): BP systolic 97–112; BP diastolic 53–64; PULSE 90–104; RESP 18; TEMP 36.4–36.5; O2SAT 91–97; BMI 24.1
--- NOTE | 2019-11-17 09:58 | HMH.ANESCL ---
[facility] Anesthesia Checklist - Patient Identification Patient Identification: Arm Band, Verbal (Name & ) - Structural Data Admitted From: Home Planned Operative Procedure/s: EGD Consent for Planned Operative Procedure(s) Verified: Yes Verified Documents: Surgical Consent, History and Physical - NPO Status Verified Time NPO: 00:00 - Chart Verification Results Verified: None - Additional verifications Patient : No Anesthesia Reactions: No - Airway Assessment C-Spine Mobility Assessed: Yes TMJ Mobility Assessed: Yes Dentition: Dentures-good fit (Removed) - Neurological Assessment Level of Consciousness: Awake, Alert, Appropriate, Follows Commands Hx Seizures: No Numbness or tingling in extremities: No - Anesthesia Plan Anesthesia Risk discussed: Yes Anesthesia Plan: Verified ASA Class: III Anesthesia Type: [facility] History I have reviewed the patient's past medical history: Yes Medical History: Reports:: Arrhythmia, Chronic Obstructive Pulmonary Disease (COPD), Hyperlipidemia, Hypertension Denies:: Cancer, Diabetes Mellitus Type 1, Diabetes Mellitus Type 2, MRSA, Seizures *Have you ever received a pneumonia vaccine?: Yes *Have you received a flu vaccine this season?: Yes Other Medical History: Reports: Arthritis, Sinus Problems Comment:: Oxygen dependent at home Anesthesia experience/problems:: No complications Other Surgeries: Yes: Angioplasty, Cholecystectomy, Tubal Ligation Amputation: No Fractures: No - *Social History Last grade of school completed: 11th or 12th Smoking Status: Current every day smoker Tobacco Type: cigarettes # Packs/Day (cigarettes): 1 #Yrs smoked (if former smoker): 50 Alcohol Intake: never Alcohol Intake Frequency:: other Substance Use Type: denies use *Occupational Status:: retired Housing: house *Travel in the last 8 weeks: None Family Hx:: Bleeding Disorder, Heart Attack, Stroke, Coronary Artery Disease
--- NOTE | 2019-11-17 10:13 | [facility].PROC ---
[facility] Procedure Note Procedure Note:: Upper Endoscopy Procedure Report: Esophagogastroduodenoscopy with cold biopsies Endoscopost: Jf Doherty II, MD Referring Physician: Lewis Sloan MD Date of Procedure: November 17, 2019 Equipment: Olympus GIF 180 standard upper endoscope Sedation: MAC sedation Indications: Mrs. Cordova is a 74-year-old female with epigastric abdominal pain and discomfort and weight loss (10 to 12 pounds) which has significantly worsened over the last 6-8 weeks. She has marked early satiety. She has had nausea, bloating and belching. She reports no heartburn, reflux or dysphagia. The patient did have labs and CAT scan. The patient is a long-term cigarette smoker (40+ pack year). The patient's lab work showed hemoglobin 13.8 and hematocrit 41.8. The patient's CAT scan showed diffuse irregular thickening of the gastric wall extending from GE junction and involving the fundus and upper portion of the body of the stomach with direct extension of the mass along the left lateral aspect of the upper body of the stomach which was nodular. There were also varices identified within the abdominal wall. The mass extended to the splenic flexure of the colon with possible colonic involvement there appeared to be metastatic disease. Procedure: Prior to the procedure, a history and physical exam was performed, and patient's medications and allergies were reviewed. The risks, benefits and alternatives of the sedation and procedure were discussed with the patient. All questions were answered and informed consent was obtained. The patient was brought to the procedure room. Patient identification and proposed procedure were verified by the physician and the nurse. The patient was placed in a left lateral decubitus position and the scope was passed under direct vision. Throughout the procedure, the patient's blood pressure, pulse, and oxygen saturations were monitored continuously. The upper GI endoscopy was accomplished without difficulty. The patient tolerated the procedure well. Findings: The scope was passed directly into the upper esophagus and advanced to the third portion of the duodenum. The post bulbar duodenum and duodenal bulb were normal with normal mucosa and conniventes. The scope was withdrawn through a normal duodenal bulb and pylorus into the stomach. The antrum of the stomach was normal. Within the proximal body and fundus of the stomach along the greater curvature was a large cavitary, ulcerated mass lesion with irregular margins and encompassed at least 4.5 to 5 cm in size. Multiple biopsies were obtained and sent for histology. There was no hiatal hernia identified. The scope was then withdrawn into the esophagus. There were some esophageal varices (grade 1) identified. The remainder of the esophageal mucosa was normal. Impression: 1. Large ulcerated cavitary mass lesion stomach along greater curvature and body/fundus of stomach extending towards GE junction (4.5 to 5 cm)?rule out gastric adenocarcinoma versus gastric lymphoma 2. Small grade 1 esophageal varices Plan: I will follow-up the biopsies. I will discuss with [facility] GI oncology/oncologic surgery (Dr. Salomón Barrera MD). Approach to therapy will be based upon histology and staging. It does appear that this is an advanced lesion with metastasis. I will discuss with patient and the family.
== END 2019-11-17 11:13 | disposition home or self-care (01) ==
LOC: OUTP 09:21
PROVIDERS: PCP Family Medicine; Visit Provider Internal Medicine Gastroenterology
PROC: 0DJ08ZZ Inspection of Upper Intestinal Tract, Via Natural or Artificial Opening Endoscopic (ICD-10-PCS; CPT 43235; principal; 2019-11-17 10:30)
DX: I85.00 Esophageal varices without bleeding (principal); R10.13 Epigastric pain; K25.9 Gastric ulcer, unspecified as acute or chronic, without hemorrhage or perforation; R63.4 Abnormal weight loss; Z68.24 Body mass index [BMI] 24.0-24.9, adult; J44.9 Chronic obstructive pulmonary disease, unspecified; I10 Essential (primary) hypertension; E78.5 Hyperlipidemia, unspecified; I49.9 Cardiac arrhythmia, unspecified; M19.90 Unspecified osteoarthritis, unspecified site; Z90.49 Acquired absence of other specified parts of digestive tract; Z72.0 Tobacco use
CPT/HCPCS: 43239; 88305